=== PATIENT | female | born 1985 | race Caucasian/White ===

== ENCOUNTER 2016-10-13 03:12 | Emergency (ER) | payer OTHER ==
[~2016-10-13] VITALS: Ht 170.2 cm; Wt 100.0 kg
[2016-10-13 03:33] VITALS: BP 129/68; PULSE 80; RESP 16; TEMP 98.3; O2SAT 100
[2016-10-13] MEDS ORDERED: ONDANSETRON HCL 4 MG/2 ML VIAL IV PUSH ONE (04:00)
[2016-10-13] MEDS ORDERED: KETOROLAC TROMETHAMINE 30 MG/ML (IVP) VIAL IV PUSH ONE (04:00)
[2016-10-13 04:17] LABS: AUTOMATED NEUTROPHIL # 5.3 TH/MM3 (1.8-7.7); BASOPHIL % 0.3 % (0.0-2.0); EOSINOPHIL # 0.4 TH/MM3 (0-0.4); HEMATOCRIT 37.6 % (35.0-46.0); HEMO FLAGS DIFF FINAL; LYMPHOCYTE # 2.4 TH/MM3 (1.0-4.8); MEAN CORPUSCULAR HGB CONC 34.5 % (32.0-36.0); MONO % 6.1 % (0.0-8.0); NEUT % 60.6 % (16.0-70.0); PLATELET COUNT 246 TH/MM3 (150-450); RED BLOOD COUNT 4.32 MIL/MM3 (4.00-5.30); RED CELL DISTRIBUTION WIDTH 13.7 % (11.6-17.2); WHITE BLOOD COUNT 8.7 TH/MM3 (4.0-11.0)
[2016-10-13 04:34] LABS: ALT (GPT) 32 U/L (10-53); ANION GAP 7 MEQ/L (5-15); AST (GOT) 15 U/L (15-37); BICARBONATE 26.7 MEQ/L (21.0-32.0); BLOOD UREA NITROGEN 14 MG/DL (7-18); CHLORIDE 105 MEQ/L (98-107); GLOMERULAR FILTRATION RATE 109 ML/MIN (>89); POTASSIUM 3.9 MEQ/L (3.5-5.1); SODIUM (NA) 139 MEQ/L (136-145)
[2016-10-13 04:36] LABS: ALKALINE PHOSPHATASE 76 U/L (45-117); TOTAL BILIRUBIN ADULT 0.2 MG/DL (0.2-1.0)
--- NOTE | 2016-10-13 05:29 | RADRPT ---
EXAM DATE/TIME: 10/13/2016 04:33 [facility] COMPARISON: No previous studies available for comparison. INDICATIONS : Pelvic pain. MEDICAL HISTORY : Polycystic ovary disease. Endometriosis. SURGICAL HISTORY : Uterine ablation. ENCOUNTER: Initial ACUITY: 1 day PAIN SCORE: 2/10 LOCATION: Bilateral pelvis MEASUREMENTS: UTERUS: 8.7 x 7.6 x 5.6 cm ENDOMETRIAL STRIPE: RIGHT OVARY: 7.3 x 4.8 x 3.9 cm LEFT OVARY: 2.9 x 3.0 x 3.4 cm FINDINGS: UTERUS: The myometrium has homogeneous echotexture without mass. Hypoechoic lesion in the low units segment measures 15 x 11 x 11 mm likely a small leiomyoma. There appears to be a bicornuate uterus. RIGHT OVARY: 2 cystic structures in the right ovary measuring 1.0 x 1.7 x 1.2 cm and 2.9 x 3.7 x 2.3 cm. Normal flow to the right ovary. LEFT OVARY: Ovary contains no mass or significant cystic lesion. MISCELLANEOUS: Positive free fluid. CONCLUSION: 1. Small uterine leiomyoma. 2. Bicornuate uterus or other similar variant. 3. 2 cysts are seen within the right ovary. Followup studies are recommended. 4. Small amount of pelvic free fluid. Alireza Hoang MD on October 13, 2016 at 5:22 Board Certified Radiologist. This report was verified electronically.
[2016-10-13 06:12] LABS: BACTERIA, URINE OCC /hpf; BLOOD, URINE NEG (NEG); COMMENT (UR) CULT NOT INDICATED; CULTURE IF INDICATED CULT NOT INDICATED; GLUCOSE,URINE NEG (NEG); KETONE, URINE NEG (NEG); MUCUS URINE FEW /lpf (OCC); NITRITE,URINE NEG (NEG); PH, URINE 5.5 (5.0-8.5); SQUAMOUS EPITHELIAL CELL URINE 1 /hpf (0-5); URINE COLOR YELLOW (YELLW/STRAW)
[2016-10-13] MEDS ORDERED: traMADol HCL 50 MG TAB PO ONE (06:30)
[2016-10-13] MEDS ORDERED: TRAM50TA PO (06:48)
--- NOTE | 2016-10-13 06:48 | PD ---
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 She says she has a history of ovarian cysts and she believes she has another one. She says she took some "Tumeric" for the pain, because she does not like taking medication, and this has eased the pain somewhat. She says she has had some nausea, but denies any vomiting. She denies fever or chills. She denies dysuria or vaginal discharge. PFSH Past Medical History Medical History: Denies Significant Hx Diminished Hearing: No Tetanus Vaccination: Unknown Influenza Vaccination: No ?: Not Ovarian Cysts: Yes Past Surgical History Surgical History: No Previous Surgery Social History Alcohol Use: No Tobacco Use: No Substance Use: No Allergies-Medications (Allergen,Severity, Reaction): Coded Allergies: No Known Allergies (Unverified , 10/13/16) Reported Meds & Prescriptions Reported Meds & Active Scripts Active Tramadol (Tramadol HCl) 50 Mg Tab 50 Mg PO Q6H PRN Review of Systems Except as stated in HPI: all other systems reviewed are Neg General / Constitutional: No: Fever, Chills HENT: No: Headaches, Lightheadedness Cardiovascular: No: Chest Pain or Discomfort Respiratory: No: Shortness of Breath Gastrointestinal: Positive: Nausea, Abdominal Pain, No: Vomiting Genitourinary: No: Dysuria Skin: No Rash, No Change in Pigmentation Neurologic: No: Weakness, Dizziness Physical Exam Narrative GENERAL: Awake and alert in no acute distress. SKIN: Warm and dry. HEAD: Atraumatic. Normocephalic. EYES: Pupils equal and round. No scleral icterus. ENT: Mucous membranes pink and moist. NECK: Trachea midline. No JVD. CARDIOVASCULAR: Regular rate and rhythm. No murmur appreciated. RESPIRATORY: No accessory muscle use. Clear to auscultation. Breath sounds equal bilaterally. GASTROINTESTINAL: Abdomen soft, nondistended. Tender to palpation across lower abdomen. No rebound or guarding. MUSCULOSKELETAL: No obvious deformities. No clubbing. No cyanosis. No edema. NEUROLOGICAL: Awake and alert. No obvious cranial nerve deficits. Motor grossly within normal limits. Normal speech. PSYCHIATRIC: Appropriate mood and affect; insight and judgment normal. Data Data Last Documented VS Vital Signs Date Time Temp Pulse Resp B/P Pulse Ox O2 Delivery O2 Flow Rate FiO2 10/13/16 03:35 80 16 10/13/16 03:33 98.3 129/68 100 Orders Complete Blood Count With Diff (10/13/16 03:52) Comprehensive Metabolic Panel (10/13/16 03:52) Urinalysis - C+S If Indicated (10/13/16 03:52) Ed Urine Pregnancytest Poc (10/13/16 03:52) Ketorolac Inj (Toradol Inj) (10/13/16 04:00) Ondansetron Inj (Zofran Inj) (10/13/16 04:00) Us Pelvis Comp W Transvaginal (10/13/16 ) Tramadol (Ultram) (10/13/16 06:30) Labs Laboratory Tests Test 10/13/16 10/13/16 04:05 05:45 White Blood Count 8.7 TH/MM3 Red Blood Count 4.32 MIL/MM3 Hemoglobin 13.0 GM/DL Hematocrit 37.6 % Mean Corpuscular Volume 87.0 FL Mean Corpuscular Hemoglobin 30.0 PG Mean Corpuscular Hemoglobin 34.5 % Concent Red Cell Distribution Width 13.7 % Platelet Count 246 TH/MM3 Mean Platelet Volume 8.0 FL Neutrophils (%) (Auto) 60.6 % Lymphocytes (%) (Auto) 28.0 % Monocytes (%) (Auto) 6.1 % Eosinophils (%) (Auto) 5.0 % Basophils (%) (Auto) 0.3 % Neutrophils # (Auto) 5.3 TH/MM3 Lymphocytes # (Auto) 2.4 TH/MM3 Monocytes # (Auto) 0.5 TH/MM3 Eosinophils # (Auto) 0.4 TH/MM3 Basophils # (Auto) 0.0 TH/MM3 CBC Comment DIFF FINAL Differential Comment Sodium Level 139 MEQ/L Potassium Level 3.9 MEQ/L Chloride Level 105 MEQ/L Carbon Dioxide Level 26.7 MEQ/L Anion Gap 7 MEQ/L Blood Urea Nitrogen 14 MG/DL Creatinine 0.63 MG/DL Estimat Glomerular Filtration 109 ML/MIN Rate Random Glucose 115 MG/DL Calcium Level 8.1 MG/DL Total Bilirubin 0.2 MG/DL Aspartate Amino Transf 15 U/L (AST/SGOT) Alanine Aminotransferase 32 U/L (ALT/SGPT) Alkaline Phosphatase 76 U/L Total Protein 6.7 GM/DL Albumin 3.4 GM/DL Urine Color YELLOW Urine Turbidity CLEAR Urine pH 5.5 Urine Specific [place] 1.007 Urine Protein NEG mg/dL Urine Glucose (UA) NEG mg/dL Urine Ketones NEG mg/dL Urine Occult Blood NEG Urine Nitrite NEG Urine Bilirubin NEG Urine Urobilinogen LESS THAN 2.0 MG/DL Urine Leukocyte Esterase NEG Urine WBC 1 /hpf Urine Squamous Epithelial 1 /hpf Cells Urine Bacteria OCC /hpf Urine Mucus FEW /lpf Microscopic Urinalysis Comment CULT NOT INDICATED MDM Medical Decision Making Medical Screen Exam Complete: Yes Emergency Medical Condition: Yes Differential Diagnosis UTI versus ovarian cyst versus pyelonephritis Narrative Course Patient is a 31 year old female complaining of lower abdominal pain. Exam shows tenderness across the lower abdomen, no rebound or guarding. IV established, labs sent. Patient refused pelvic exam. Ultrasound performed shows evidence of ovarian cyst. Patient given Toradol for pain. Patient reports some improvement of her pain with the Toradol, says she still has some pain. Given tramadol. Labs show no acute abnormalities. Patient advised of results of the ultrasound. Advised follow-up with MORTGAGE LENDER. Discharged home and advised to return to the ED as needed for any worsening symptoms. Diagnosis Primary Impression: Ovarian cyst Qualified Code: N83.201 - Cyst of right ovary Patient Instructions: General Instructions, Ovarian Cyst (ED) Additional Instructions: You have two ovarian cysts. 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 Take Ibuprofen as needed for pain. You can take Tramadol for severe pain. Return to the ED as needed for any worsening symptoms. Scripts Tramadol 50 Mg Tab50 Mg PO Q6H PRN (PAIN) #14 TAB Ref 0 Prov:Kalyn Bliss MD 10/13/16 Disposition: 01 DISCHARGE HOME Condition: Stable Kalyn Bliss MD Oct 13, 2016 06:48
== END 2016-10-13 07:55 | disposition home or self-care (01) ==
LOC: NEPE 03:12
DX: N83.201 Unspecified ovarian cyst, right side (principal)
CPT/HCPCS: 76830; 76856; 80053; 81001; 84703; 85025; 96374; 96375; 99284; J1885; J2405

== ENCOUNTER 2017-04-30 05:18 | Emergency (ER) | payer OTHER, MEDICAID ==
[~2017-04-30] VITALS: Ht 170.2 cm; Wt 122.5 kg
[~2017-04-30 05:18] MED LIST: TRAM50TA PO
[2017-04-30 05:19] VITALS: BP 150/102; PULSE 82; RESP 18; TEMP 98.6; O2SAT 99
[2017-04-30] MEDS ORDERED: IBUPROFEN 600 MG TAB PO ONE (05:45)
--- NOTE | 2017-04-30 05:47 | PD ---
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 She states it hurts with movement. She denies any incontinence, fevers, or any other symptoms. Modifying Factors: None Associated Signs & Symptoms: Lower back pain, injury Risk Factors: None PFSH Past Medical History Medical History: Denies Significant Hx Diminished Hearing: No Tetanus Vaccination: Unknown Influenza Vaccination: No ?: Not Ovarian Cysts: Yes Social History Alcohol Use: No Tobacco Use: No Substance Use: No Allergies-Medications (Allergen,Severity, Reaction): Coded Allergies: No Known Allergies (Unverified , 10/13/16) Reported Meds & Prescriptions Reported Meds & Active Scripts Active Flexeril (Cyclobenzaprine HCl) 10 Mg Tab 10 Mg PO TID Motrin Ib (Ibuprofen) 200 Mg Tablet 600 Mg PO QID PRN Review of Systems Except as stated in HPI: all other systems reviewed are Neg Physical Exam Narrative GENERAL: Well-developed young white female patient currently in moderate distress secondary to pain. Awake and oriented 3. SKIN: Focused skin assessment warm/dry. HEAD: Atraumatic. Normocephalic. EYES: Pupils equal and round. No scleral icterus. No injection or drainage. ENT: No nasal bleeding or discharge. Mucous membranes pink and moist. NECK: Trachea midline. No JVD. CARDIOVASCULAR: Regular rate and rhythm. No murmur appreciated. RESPIRATORY: No accessory muscle use. Clear to auscultation. Breath sounds equal bilaterally. GASTROINTESTINAL: Abdomen soft, non-tender, nondistended. Hepatic and splenic margins not palpable. MUSCULOSKELETAL: No obvious deformities. No clubbing. No cyanosis. No edema. BACK: No CVA tenderness. No rash. Tenderness on palpation of the midline of the entire lumbar spine with mild tender to palpation of the right lower lumbar paraspinal area with no obvious deformities or step-offs. NEUROLOGICAL: Awake and alert. No obvious cranial nerve deficits. Motor grossly within normal limits. Normal speech. PSYCHIATRIC: Appropriate mood and affect; insight and judgment normal. Data Data Last Documented VS Vital Signs Date Time Temp Pulse Resp B/P Pulse Ox O2 Delivery O2 Flow Rate FiO2 04/30/17 05:19 98.6 82 18 150/102 99 Room Air Orders Spine, Thoracic-Ap/Lat/Sw(3vw) (04/30/17 05:42) Spine, Lumbar Comp W/Obliq (04/30/17 05:42) Ibuprofen (Motrin) (04/30/17 05:45) Cyclobenzaprine (Flexeril) (04/30/17 06:15) MDM Medical Decision Making Medical Screen Exam Complete: Yes Emergency Medical Condition: Yes Medical Record Reviewed: Yes Differential Diagnosis Lumbar spine injurymuscle strain versus fractures versus herniated disc Narrative Course X-rays did not show any signs of acute fractures. At this point, patient had been given ibuprofen and Flexeril and on reevaluation at 7 AM is feeling more comfortable. My plan would be to release her with symptomatic relief or pain and muscle relaxants. She will need to take it easy for the next week, follow- up with primary care physician. No heavy lifting. Return for any worsening in symptoms as needed. The plan has been discussed with her and she states understanding. Diagnosis Primary Impression: Back injury Med/Other Pt SpecificInfo: Prescription(s) given Scripts Cyclobenzaprine (Flexeril)10 Mg Tab10 Mg PO TID #15 TAB Ref 0 Prov:Annie Ragland MD 04/30/17 Ibuprofen (Motrin Ib)200 Mg [id number] Mg PO QID PRN (PAIN SCALE 1 TO 10) #21 Prov:Annie Ragland MD 04/30/17 Disposition: 01 DISCHARGE HOME Condition: Stable Annie Ragland MD Apr 30, 2017 05:47
[2017-04-30] MEDS ORDERED: CYCLOBENZAPRINE HCL 10 MG TAB PO ONE (06:15)
[2017-04-30] MEDS ORDERED: IBUP-1129 PO (06:56)
[2017-04-30] MEDS ORDERED: CYCL1TAB29 PO (06:56)
--- NOTE | 2017-04-30 07:04 | RADRPT ---
EXAM DATE/TIME: 04/30/2017 06:42 [facility] COMPARISON: No previous studies available for comparison. 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 MEDICAL HISTORY : None. SURGICAL HISTORY : None. ENCOUNTER: Initial ACUITY: 1 day PAIN SCORE: 7/10 LOCATION: Bilateral T spine FINDINGS: There are mild degenerative changes in thoracic spine. There is good preservation of vertebral body heights. Acute compression fracture is not appreciated. CONCLUSION: Mild degenerative changes thoracic spine. Fede Rincon MD FACR on April 30, 2017 at 7:00 Board Certified Radiologist. This report was verified electronically.
--- NOTE | 2017-04-30 07:05 | RADRPT ---
EXAM DATE/TIME: 04/30/2017 06:44 [facility] COMPARISON: No previous studies available for comparison. 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 MEDICAL HISTORY : None. SURGICAL HISTORY : None. ENCOUNTER: Initial ACUITY: 1 day PAIN SCORE: 8/10 LOCATION: Bilateral l spine FINDINGS: Similar mild degenerative changes at T12-L1. There is minimal loss of disc space height at L5-S1. T he preservation of vertebral body heights. There is no significant facet disease. SI joints are nor mal. CONCLUSION: Mild degenerative changes. Fede Rincon MD FACR on April 30, 2017 at 7:02 Board Certified Radiologist. This report was verified electronically.
== END 2017-04-30 07:21 | disposition home or self-care (01) ==
LOC: NEPE 05:18
DX: S39.92XA Unspecified injury of lower back, initial encounter (principal); X50.0XXA Overexertion from strenuous movement or load, initial encounter; Y93.F2 Activity, caregiving, lifting; Y92.099 Unspecified place in other non-institutional residence as the place of occurrence of the external cause
CPT/HCPCS: 72072; 72110; 99283